=== PATIENT | female | born 1985 | race Caucasian/White ===

== ENCOUNTER 2019-04-24 11:45 | Emergency (ER) | payer OTHER ==
--- OUTSIDE RECORDS SUMMARY | 2019-04-24 12:01 | XMS REPORT | Continuity of Care Document ---
:1985 External Reference #:[id number] Author Name Sonali Heredia Care Team Providers Name Role Phone Lavern Ott MD Primary Care Physician Unavailable Payers Date Identification Numbers Payment Provider Subscriber Policy Number: [id number] Nadir Roman PayID: [id number] [address] [place] [address] Family History Date Family Member(s) Observation Comments General Diabetes General Hypertension Mother Cervical Cancer times 3 Siblings 4 Maternal Grandfather Diabetes Maternal Grandmother Hypertension Maternal Grandmother Hypercholesterolemia Social History Type Date Description Comments Sex Unknown Marital Status Significant Other Lives With Boyfriend Lives With Children 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 [employer] Tobacco Use Start: Unknown Never Smoked Cigarettes Smoking Status Reviewed: 04/08/19 Never Smoked Cigarettes ETOH Use Denies alcohol use Tobacco Use Start: Unknown Patient has never smoked Recreational Drug Use Denies Drug Use Exercise Type/Frequency Exercises regularly 2 days per week Allergies, Adverse Reactions, Alerts Active Allergies Reaction Severity Comments Date Amoxicillin 12/26/2018 Medications Active Medications SIG Qnty Indications Ordering Provider Date Tylenol 2 tablets every 4 Unknown 325mg Capsules hours as needed for pain Multi For Her 1 qd Unknown Capsules History Medications Ativan take one tablet 2tabs M43.06 Catrachito Camacho, 12/26/2018 - 2mg Tablets by mouth 30 M.D. 01/31/2019 minutes before mri, may repeat at the time of mri. Deblitane Take One Tablet Unknown - 0.35mg By Mouth Every 03/29/2019 Tablets Day Vital Signs Date Vital Result Comment 04/08/2019 10:27am Height 60 inches 5'0" Weight 206.00 lb BP Systolic Sitting 122 mmHg BP Diastolic Sitting 80 mmHg Pain Level 7 BMI (Body Mass Index) 40.2 kg/m2 03/29/2019 10:08am Height 60 inches 5'0" Weight 206.50 lb Heart Rate 70 /min BP Systolic 110 mmHg BP Diastolic 80 mmHg O2 % BldC Oximetry 97 % BMI (Body Mass Index) 40.3 kg/m2 Last Menstrual Period [id number] 02/26/2019 2:00pm Height 60 inches 5'0" Weight 208.12 lb Heart Rate 76 /min BP Systolic 129 mmHg BP Diastolic 85 mmHg O2 % BldC Oximetry 99 % BMI (Body Mass Index) 40.6 kg/m2 Last Menstrual Period [id number] 02/04/2019 1:27pm Height 60 inches 5'0" Weight 208.00 lb BP Systolic Sitting 110 mmHg BP Diastolic Sitting 80 mmHg Pain Level 8 BMI (Body Mass Index) 40.6 kg/m2 01/31/2019 9:05am Height 60 inches 5'0" Weight 208.38 lb Heart Rate 76 /min BP Systolic 126 mmHg BP Diastolic 76 mmHg O2 % BldC Oximetry 97 % BMI (Body Mass Index) 40.7 kg/m2 Last Menstrual Period [id number] 12/26/2018 1:38pm Height 60 inches 5'0" Weight 201.00 lb BP Systolic Sitting 102 mmHg BP Diastolic Sitting 70 mmHg Pain Level 6 BMI (Body Mass Index) 39.3 kg/m2 Results Test Date Facility Test Result H/L Range Note GC/Chlamydia 02/26/2019 [facility] Chlamydia Negative Negative Amplified Rna [address] [address] [phone] Neisseria gonorrhoeae (GC) Rna Negative Negative Laboratory test 02/22/2019 [facility] HCG < 0.60 mIU/ mL [address] [place] [address] [phone] Laboratory test 01/31/2019 [facility] Cytology SEE RESULT [address] [place] [address] [phone] 1 <5.0 Negative 5.0 - 25.0 Indeterminate (Repeat testing recommended after 72 hours) >25.0 Positive Perimenopausal women can display HCG levels of up to 20 mIU/mL 2 SEE RESULT BELOW Name: LIA ROMAN Amanda : [address]: Meron Pacheco GUITAR TECHNICIAN Acct: [id number] Unit: [id number] AGE: 33 Location: [facility] Re01/31/19 SEX: F Status: REG REF SPEC: [id number] DANIAL: 01/31/19-[address]: Meron Pacheco GUITAR TECHNICIAN REQ: [id number] RECD: 01/31/19 STATUS: SOUT _ ORDERED: TP IMAGE ANALYS, HPV/Thin Prep COMMENTS: [id number] Negative for Intraepithelial lesion or Malignancy Date Time Test Result Flag (u) Normal Range 01/31/19 1000 @ HPV RNA Negative Negative @ @ The high-risk HPV types detected by the assay include: 16, @ 18, 31, 33, 35, 39, 45, 51, 52, 56, 58, 59, 66, and 68. A. Ectocervical/Endocervical Specimen Adequacy: Satisfactory of evaluation Transformation zone component identified Patient Information: HPV: High risk HPV RNA testing regardless of pap results. Actual Specimen Date: 01/31/19 LMP If Unknown: Last Menstrual Period Not Given. ?: N Post Menopausal?: N Hysterectomy?: N Previous Abnormal Pap Smears?:N Signed by and Reported on: BETZAIDA Malhotra (ASCP) 1414 This Pap test was evaluated with the assistance of the InflowControl Test Imaging System. Due to cytologic findings at the submarine worker microscope, comprehensive manual rescreening by a Bilingual Recruiter may be required. The Pap Smear is a screening test designed to aid in the detection of premalignant and malignant conditions of the uterine cervix. It is not a diagnostic procedure and should not be used as the sole means of detecting cervical cancer. Both false- positive and false- negative reports do occur. Depending on your risk status, a Pap smear should be obtained and evaluated every 1-3 years. END OF REPORT DEPARTMENT OF PATHOLOGY, [address] [place] [address] Jaspreet Barajas M.D. Director [facility] # [id number] Procedures Date Code Description Status 02/26/2019 10369 Insert Intrauterine Device Completed Encounters Type Date Location Provider Dx Diagnosis Office Visit 02/04/2019 [facility] Grace Michel, M51.36 Other intervertebral 1:30p Of Environmental Officer PA-C disc degeneration, lumbar region M51.37 Other intervertebral disc degeneration, lumbosacral region M43.06 Spondylolysis, lumbar region Office Visit 01/31/2019 9:00a [facility] Meron Pacheco, Z01.419 Encntr for obstetrician gynecologist [facility] N[facility] exam (general) (routine) w/o abn findings Z11.51 Encounter for screening for human papillomavirus (HPV) Office Visit 12/26/2018 1:30p [facility] Grace Michel, S32.058A Oth fracture of [facility] PA-C fifth lumbar vertebra, init for clos fx M43.06 Spondylolysis, lumbar region Plan of Treatment Future Appointment(s):05/06/2019 1:30 pm - GUCCI Muhammad at [facility]04/08/2019 - GUCCI Scott-CM43.06 Spondylolysis, lumbar eurplhP90.36 Other intervertebral disc degeneration, lumbar regionFollow up: Please obtain disc with xrays from Joanne Follow up 1-2 weeks after injection
[2019-04-24 12:12] VITALS: BP 127/81
--- NOTE | 2019-04-24 13:19 | UC ---
Throat Pain/Nasal Angel HPI - HPI Summary HPI Summary: 34-year-old female presents with 2 day history of sore throat. States pain radiates into her bilateral ears. Denies fever, chills, nasal congestion, dysphagia, cough, chest pain, shortness of breath, abdominal pain, nausea, or vomiting. - History of Current Complaint Chief Complaint: UCRespiratory Stated Complaint: SORE THROAT Time Seen by Provider: 04/24/19 12:48 Hx Obtained From: Patient Hx Last Menstrual Period: iud Pain Intensity: 3 - Allergies/Home Medications Allergies/Adverse Reactions: Allergies Allergy/AdvReac Type Severity Reaction Status Date / Time amoxicillin Allergy Severe Swelling Verified 04/24/19 12:12 PMH/Surg Hx/FS Hx/Imm Hx Previously Healthy: Yes - Denies significant PMH - Surgical History Surgical History: Yes Surgery Procedure, Year, and Place: 3 C-SECTIONS. GASTRIC SLEEVE. CARPAL TUNNEL. TONSILECTOMY - Family History Known Family History: Positive: Non-Contributory - Social History Occupation: Employed Full-time Lives: With Family Alcohol Use: None Substance Use Type: None Smoking Status (MU): Never Smoked Tobacco Review of Systems All Other Systems Reviewed And Are Negative: Yes Constitutional: Negative: Fever, Chills Skin: Negative: Rash Eyes: Negative: Drainage, Eye Redness ENT: Positive: Sore Throat, Ear Ache. Negative: Nasal Discharge, Sinus Congestion, Sinus Pain/Tenderness Respiratory: Negative: Shortness Of Breath, Cough Cardiovascular: Positive: Negative Gastrointestinal: Negative: Abdominal Pain, Vomiting, Nausea Genitourinary: Positive: Negative Musculoskeletal: Positive: Negative Neurological: Positive: Negative Is Patient Immunocompromised?: No Physical Exam - Summary Physical Exam Summary: GENERAL APPEARANCE: Well developed, well nourished, alert and cooperative, and appears to be in no acute distress. EYES: Conjunctiva clear. No drainage. EARS: External auditory canals and tympanic membranes clear, hearing grossly intact. NOSE: No nasal discharge. THROAT: Mild pharyngeal erythema. Tonsils surgically absent. Uvula midline. Oral cavity normal. Teeth and gingiva in good general condition. NECK: Neck supple, non-tender without lymphadenopathy. CARDIAC: Normal S1 and S2. No S3, S4 or murmurs. Rhythm is regular. There is no peripheral edema, cyanosis or pallor. Extremities are warm and well perfused. Capillary refill is less than 2 seconds. Peripheral pulses intact. LUNGS: Clear to auscultation without rales, rhonchi, wheezing or diminished breath sounds. ABDOMEN: Positive bowel sounds. Soft, nondistended, nontender. No guarding or rebound. No masses or hepatosplenomegally. MUSKULOSKELETAL: ROM intact to all extremities. No joint erythema or tenderness. Normal muscular development. Normal gait. SKIN: Skin normal color, texture and turgor with no lesions or eruptions. Triage Information Reviewed: Yes Vital Signs: Initial Vital Signs Temp 98.5 F 04/24/19 12:09 Pulse 79 04/24/19 12:09 Resp 18 04/24/19 12:09 BP 127/81 04/24/19 12:09 Pulse Ox 99 04/24/19 12:09 Vital Signs Reviewed: Yes Throat Pain/Nasal Course/Dx - Course Course Of Treatment: 34-year-old female presents with 2 day history of sore throat. States pain radiates into her bilateral ears. Denies fever, chills, nasal congestion, dysphagia, cough, chest pain, shortness of breath, abdominal pain, nausea, or vomiting. Afebrile. Vital signs stable. Patient had mild pharyngeal erythema , surgically absent tonsils, no cervical lymphadenopathy, and otherwise unremarkable exam. Rapid strep test was negative. Reviewed results with the patient. Recommending symptomatic treatment for viral pharyngitis. She is to follow-up with her primary care provider in 3-5 days if symptoms are not improving. Anticipatory guidance and warning symptoms were reviewed with the patient. Verbalizes understanding and agrees with plan of care. - Differential Dx/Diagnosis Differential Diagnosis/HQI/PQRI: Mononucleosis, Pharyngitis, Tonsillitis, URI Provider Diagnosis: Viral pharyngitis Discharge - Sign-Out/Discharge Documenting (check all that apply): Patient Departure All imaging exams completed and their final reports reviewed: No Studies - Discharge Plan Condition: Stable Disposition: HOME Patient Education Materials: Pharyngitis (ED) Referrals: Thalia Reaves [Primary Care Provider] - 3 Days Additional Instructions: Your rapid strep test in the clinic today was negative. Your symptoms are likely from a viral infection. Viral infections do not respond to antibiotics and are limited to the treatment of symptoms. Viral infections typically run their course in 7-10 days. Drink plenty of fluids to avoid dehydration especially if you are running any fever. Use salt water gargles several times a day. Take over the counter acetaminophen (Tylenol) according to directions as needed for pain or fever. You may also use Chloraseptic spray or Cepacol lonzenges according to directions which contain a numbing medication and can provide some temporary relief from your sore throat. Return here or follow up with your primary care provider in 3-5 days if symptoms persist. Seek immediate medical attention in the emergency room if you have fever greater than 100.5 F despite taking acetaminophen or ibuprofen, are unable to swallow or develop drooling, are unable to open your mouth fully, are unable to eat or drink, have pain that is not relieved with over the counter pain medication, or have any difficulty breathing. - Billing Disposition and Condition Condition: STABLE Disposition: Home
== END 2019-04-24 13:34 | disposition home or self-care (01) ==
LOC: UCEAST 11:45
DX: J02.8 Acute pharyngitis due to other specified organisms (principal)
CPT/HCPCS: 87651; 99211; G0463